=== PATIENT | female | born 1965 | race American Indian/Alaskan Native ===

== ENCOUNTER 2016-11-02 16:45 | Emergency (ER) | payer SELFPAY ==
--- NOTE | 2016-11-02 17:03 | Emergency Department Report ---
Chief Complaint: Back Pain/Injury Stated Complaint: LT LEG PAIN/LOWER BACK/DIFFICULT URINATION Time Seen by Provider: 11/02/16 17:01 - HPI History of Present Illness: PT c/o lbp x 2 weeks. pain radiates down left leg pt concerned for UTI - ROS Review of Systems: - dysuira - Exam Physical Exam: pt looks well, non toxic no cva tenderness bing MSE screening note: Focused history and physical exam performed. Due to findings the following was ordered: lab ED Disposition for MSE Condition: Stable
[2016-11-02 17:09] VITALS: BP 136/84
[2016-11-02 17:32] LABS: Bilirubin,Urine NEG (Negative); Blood,Urine NEG (Negative); Ketones,Urine NEG (Negative); Leukocyte Esterase,Urine TR (Negative); Mucus,Urine FEW /HPF; Nitrite,Urine NEG (Negative); Protein,Urine <15 mg/dL mg/dL (Negative); Urobilinogen,Urine < 2.0 mg/dL (<2.0)
== END 2016-11-03 01:15 | disposition left against medical advice (07) ==
LOC: ED 16:45
DX: M54.5 Low back pain (principal); M79.605 Pain in left leg; R06.00 Dyspnea, unspecified; Z53.21 Procedure and treatment not carried out due to patient leaving prior to being seen by health care provider
CPT/HCPCS: 81001